=== PATIENT | female | born 1950 | race Caucasian/White ===

== ENCOUNTER 2023-04-10 09:45 | Observation (INO) ==
--- NOTE | 2023-03-19 14:11 | PAT Medication Instructions ---
Medication Instructions Date of Service March 19, 2023 Home Medications Medication Instructions Recorded triamterene 37.5 0.5 tab PO QAM #45 tabs 05/25/21 mg-hydrochlorothiazide 25 mg tablet pravastatin 80 mg tablet 80 mg PO HS #90 tabs 07/25/22 multivit with ncyzcnqk-efhj-KO-lutein 8 mg iron-400 mcg-300 mcg tablet (Centrum Silver Women) 1 tab PO QAM triamterene 37.5 mg-hydrochlorothiazide 25 mg tablet 0.5 tab PO QAM pravastatin 80 mg tablet 80 mg PO HS levothyroxine 75 mcg tablet 75 mcg PO QAM DO NOT take the morning of surgery multivit with neqhsgpl-dpta-EC-lutein 8 mg iron-400 mcg-300 mcg tablet (Centrum Silver Women) 1 tab PO QAM triamterene 37.5 mg-hydrochlorothiazide 25 mg tablet 0.5 tab PO QAM Take morning of surgery With a small sip of water, OTHERWISE NOTHING TO EAT OR DRINK AFTER MIDNIGHT: levothyroxine 75 mcg tablet 75 mcg PO QAM Take evening before surgery pravastatin 80 mg tablet 80 mg PO HS Other Notes If you have any questions please call us at [phone] or [phone] or [phone] or [phone]
--- NOTE | 2023-03-29 09:22 | Anesthesiology Consultation ---
Date of Service March 29, 2023 Assessment & Plan (1) Encounter for pre-operative examination: - COVID screening: Per assessment on 03/29: No known COVID-19 positive contacts or current COVID-19 related symptoms. Travel screen negative. At surgeon discretion if preop Covid testing being done. - S/P Right TKA (09/17/18): SAB at L3/4 x1 attempt + PNB at [facility] - Outpatient joint assessment: Pt currently scheduled for inpatient pathway. If surgeon requests review for outpatient joint pathway, patient is not recommended candidate for outpatient joint program from anesthesia standpoint. - PCP visit (04/03/23): "Preoperative labs, EKG, CXR reviewed with good results. Pt has elevated BP.. Hypertension.. Uncontrolled. Elevated on recheck.. Discussed faithful daily use of BP medication.. She will return on Saturday for BP check, and bring home readings as well as her home cuff to be checked.. I am hopeful her numbers are more reasonable and she can be cleared for surgery at that time.. Follow Up: BP Check Saturday." BP 172/82 > 152/78 on recheck. - Patient acceptable risk for surgery pending BP recheck/final PCP clearance ([facility] [place], BP recheck 04/08). Chart Review Chart Review: Patient seen in Pre Admission Testing Teaching & Discussion Pre-Anesthesia Teaching/Discussion Notes: Instructed NPO after midnight before surgery,except medications with 15 cc of water. Medication instructions provided according to the PAT guidelines. History Surgery Operation Date: 04/10/23 14:15 Proposed Procedures p Left Total Knee Arthroplasty - Sony Fischer MD Height/Weight Height: 4 ft 11 in Weight: 87.7 kg Allergies Allergy/AdvReac Type Severity Reaction Status Date / Time moxifloxacin [From Avelox] Allergy Intermediate Elevated Verified 04/03/23 07:53 temperature keflex AdvReac Intermediate Diarrhea Uncoded 04/03/23 07:53 Medications Home Medications Medication Instructions Recorded Confirmed Last Taken multivit with 1 tab PO QAM 09/09/18 04/03/23 09/16/18 08:00 mpvaolqp-kyzn-YV-lutein 8 mg iron-400 mcg-300 mcg tablet (Centrum Silver Women) pravastatin 80 mg tablet 80 mg PO HS #90 tabs 07/25/22 04/03/23 Unknown levothyroxine 75 mcg tablet 75 mcg PO QAM 03/14/23 04/03/23 Unknown triamterene 37.5 0.5 tab PO QAM #45 tabs 03/26/23 04/03/23 Unknown mg-hydrochlorothiazide 25 mg tablet Past Medical History Medical History Elevated liver enzymes fatty liver? Hair loss Hearing deficit History of kidney stones Hx of cancer of endometrium stage 1A treated with surgery alone Hx of gastroesophageal reflux (GERD) Hx of glaucoma Hyperlipidemia Hypertension Hypothyroid Idiopathic peripheral neuropathy Lumbar canal stenosis Obesity Osteoarthritis Prediabetes Exercise / Class Metabolic Activity III < 4 Walking/Shop/Light housework (No CP, no SOB with 7 steps (lives in a bi- level)) Past Family History Family History Grandmother (Maternal) Family history of diabetes mellitus Sister Family history of diabetes mellitus Aunt Family history of diabetes mellitus Family/Other Family history of diabetes mellitus Other No family history of adverse response to anesthesia Past Surgical History Surgical History H/O eye surgery R/L eye laser surgery for glaucoma History of cardiac cath December 2002 per record- "negative"/patient unaware History of cataract extraction R/L History of cystoscopy with stents History of robot-assisted laparoscopic hysterectomy with BSO and LN dissection 2020 Hx of carpal tunnel repair right and left Hx of colonoscopy Hx of total knee replacement Right TKA (09/17/18): SAB at L3/4 x1 attempt + PNB at [facility] Past Anesthesia History No Hx of Anesthesia Complications and No Family Hx of Anesthesia Complications History of PONV No Hx of PONV and No Hx of Motion Sickness Social History Smoking Status: Former smoker tobacco type: cigarettes Do You Dip or Chew Tobacco: No Smoking End Date: Quit in highschool Hx Alcohol Use: No Hx Substance Use: No substance use type: does not use Review of Systems Patient denies chest pain, shortness of breath, dyspnea on exertion, fever, chills, cough, wheezing, palpitations. Physical Exam Vital Signs VITALS BP 169/78 P 66 TEMP 98.4 SP02 96%RA RESP 16 PHYSICAL Full cervical extension range of motion. Full TMJ range of motion. TMD 3 finger breaths Mallampati Score 2.5 Dentition: intact Lungs: clear throughout to auscultation Cardiac: regular rate and rhythm, no murmurs noted Spine: normal Carotid arteries: negative bruit Extremities: no LE edema Lab Results Anesthesia Preop Results Results Anesthesia Widget: WBC 6.47 K/ul (4.8-10.8) 03/29/23 Hgb 13.9 g/dl (12.0-16.0) 03/29/23 Hct 41.8 % (37.0-47.0) 03/29/23 Plt 232 K/uL (130-400) 03/29/23 Na 141 mmol/L (136-145) 03/29/23 K 4.2 mmol/L (3.5-5.1) 03/29/23 Cl 105 mmol/L (98-107) 03/29/23 CO2 30 mmol/L (21-32) 03/29/23 BUN 13 mg/dl (6-23) 03/29/23 Creat 0.91 mg/dl (0.6-1.2) 03/29/23 Glucose Level 110 mg/dl (70-99(Fasting)) H 03/29/23 PT 11.2 Seconds (9.0-12.0) 03/29/23 PTT 26.5 Seconds (21.0-31.0) 03/29/23 INR 1.0 (0.9-1.1) 03/29/23 Urine Color Yellow 03/29/23 Urine Appearance Clear (Clear) 03/29/23 Urine pH 7.5 (4.5-7.5) 03/29/23 Urine Specific [place] 1.015 (1.000-1.030) 03/29/23 Urine Protein Negative (Negative) 03/29/23 Urine Glucose (UA) Negative (Negative) 03/29/23 Urine Ketones Negative (Negative) 03/29/23 Urine Blood Negative (Negative) 03/29/23 Urine Nitrite Negative (Negative) 03/29/23 Urine Bilirubin Negative (Negative) 03/29/23 Urine Urobilinogen Negative (Negative) 03/29/23 Urine Leukocyte Esterase Negative (Negative) 03/29/23 Blood Type O Positive 03/29/23 Antibody Screen NEGATIVE 03/29/23 Testing Electrocardiogram Date: 03/29/23 NSR at 64bpm. Low voltage QRS. No significant change compared to 09/11/18 per swimmer comparison. Chest X-Ray Date: 03/29/23 FINDINGS: No lines and tubes are seen. Calcified aortic knob is seen. The lungs are clear. No evidence of pleural effusion or pneumothorax. Degenerative changes are seen in the thoracic spine. IMPRESSION: No acute chest disease. Stress Test Date: 03/20/19 Type: exercise Negative exercise stress echo/ECG for ischemia at 87% MPHR. 7 METS. Baseline echo notes normal LV function. LVEF 60%. Mild aortic sclerosis.Mild RVD. Mild concentric LVH. COVID-19 Risk Screen Screening Information COVID-19 Screen Date: 03/29/23 Exposure 21 Days Family/Household +COVID Last 21 Days: No Exposure 10 Days Any COVID Exposure Last 10 Days: No Symptoms Last 10 Days Experienced COVID Sx Last 10 Days: No + COVID 0-90 Days COVID + in Last 0-90 Days: No
--- NOTE | 2023-04-09 10:08 | History & Physical Report ---
Date of Service April 09, 2023 Assessment & Plan (1) Primary osteoarthritis of left knee: Plan: Treatment options discussed with patient. She has failed conservative measures and would like to proceed with surgery. Risks, benefits and alternatives to surgery including but not limited to infection, DVT, pain, stiffness, need for revision surgery, damage to blood vessels, damage to nerves, PE, , were discussed with the patient and they wish to proceed. Plan on left total knee arthroplasty scheduled for 04/10/[address] Fischer at [facility]. Plan on outpatient physical therapy. Plan on aspirin 81mg twice daily for post op DVT prophylaxis. All questions answered. Patient will follow up post op. History of Present Illness Chief Complaint: Left knee pain Primary Care Provider: Yanira Bacon, 72yo female with PMHx significant for HTN, hypothyroidism, high cholesterol, who presents with ongoing left knee pain. Pain is interfering with her daily activity. She has failed conservative measures and would like to proceed with surgery. Patient denies headaches, sweats, fevers, chills, double vision, blur red vision, cough, sore throat, dysphagia, chest pain, sob, wheezing, n/v/d/c, numbness, tingling, fatigue, urinary symptoms, mood disorders. ROS positive for left shoulder pain and stiffness. Allergies Allergy/AdvReac Type Severity Reaction Status Date / Time moxifloxacin [From Avelox] Allergy Intermediate Elevated Verified 04/03/23 07:53 temperature keflex AdvReac Intermediate Diarrhea Uncoded 04/03/23 07:53 Home Medications Medication Instructions Recorded Confirmed Type aokzpucz-fddl-mnaf 8 mg-folic 400 1 tab PO QAM 09/09/18 04/03/23 History mcg-K 50 mcg-lutein 300 mcg tablet (Centrum Silver Women) pravastatin 80 mg tablet 80 mg PO HS #90 tabs 07/25/22 04/03/23 Rx levothyroxine 75 mcg tablet 75 mcg PO QAM 03/14/23 04/03/23 History triamterene 37.5 0.5 tab PO QAM #45 tabs 03/26/23 04/03/23 Rx mg-hydrochlorothiazide 25 mg tablet Past Med/Surg History Medical History Elevated liver enzymes fatty liver? Hair loss Hearing deficit History of kidney stones Hx of cancer of endometrium stage 1A treated with surgery alone Hx of gastroesophageal reflux (GERD) Hx of glaucoma Hyperlipidemia Hypertension Hypothyroid Idiopathic peripheral neuropathy Lumbar canal stenosis Obesity Osteoarthritis Prediabetes Surgical History H/O eye surgery R/L eye laser surgery for glaucoma History of cardiac cath December 2002 per record- "negative"/patient unaware History of cataract extraction R/L History of cystoscopy with stents History of robot-assisted laparoscopic hysterectomy with BSO and LN dissection 2020 Hx of carpal tunnel repair right and left Hx of colonoscopy Hx of total knee replacement Right TKA (09/17/18): SAB at L3/4 x1 attempt + PNB at [facility] Family History Grandmother (Maternal) Family history of diabetes mellitus Sister Family history of diabetes mellitus Aunt Family history of diabetes mellitus Family/Other Family history of diabetes mellitus Other No family history of adverse response to anesthesia Social History Smoking Status: Former smoker Smoking End Date: Quit in [employer]; Second Hand Exposure: No; Do You Dip or Chew Tobacco: No; Hx Alcohol Use: No Hx Substance Use: No Preferred Language: Malian Communication Ability: Effective Medical Record Technician Required: No Beliefs That Will Affect Care: None marital status: Current Living Situation: Spouse Feels Safe at Home: Yes Safety Concerns: Feels Safe At This Time Assistive Devices: Glasses and Hearing Aid - Bilateral Review of Systems All systems reviewed & are unremarkable except as noted in HPI & below Physical Exam Constitutional: well developed and well nourished; no acute distress Eyes: PERRL, conjunctivae normal, anicteric sclerae ENMT: external ear and nose normal, oropharynx normal Neck: trachea midline, no thyromegaly Respiratory: normal respiratory effort, lungs clear to auscultation Cardiovascular: RRR, no murmur, no edema Musculoskeletal: Left knee: ROM 0-115 degrees. Tenderness medial joint line. Crepitation with ROM. Varus alignment. Stable to valgus and varus stress. Skin: no rashes, warm and dry Neurologic: patellar DTR's 2+ bilat, sensation intact Psychiatric: A+Ox3, euthymic affect Results & Data Diagnostic Findings Left knee radiographs: [place]-ph-rbfu medial compartment with periarticular osteophytes. Arthritic changes patellofemoral compartment. There is a right total knee arthroplasty in stable alignment.
[~2023-04-10 09:45] MED LIST: ACETAMINOPHEN 500 MG TAB PO SCH; CeleBREX 200 MG CAP PO SCH; FAMOTIDINE 20 MG TAB PO SCH; GABAPENTIN 300 MG CAP PO SCH; LR 500ML BOLUS, THEN 15ML/HR IV SCH; METOCLOPRAMIDE HCL 10 MG TABLET PO SCH; ROPIVACAINE 0.5% 5 MG/ML 30 ML VIAL ONE; ROPIVACAINE 0.5% HCL/PF 150 MG, BUPIVACAINE 0.75% MPF 20 ML, EPINEPHrine 30MG/30ML (OR ... INSTIL SCH; TRANEXAMIC ACID 1,000 MG **IV Intra-op IV SCH; TRANEXAMIC ACID 1,000 MG **IV Pre-op IV SCH; ceFAZolin 2000MG 2,000 MG/15 ML SYR IV SCH; dexAMETHasone 4 MG TAB PO SCH
--- NOTE | 2023-04-10 10:05 | History & Physical Bridge Note ---
Date of Service April 10, 2023 History & Physical Bridge Note I have examined the patient, reviewed the History & Physical and in the interval since the performance of the History & Physical I have noted the following changes of clinical significance: no changes noted
[2023-04-10] MEDS ORDERED: PROPOFOL IV EMULSION 10 MG/ML 20 ML VIAL IV ONE ×4 (10:37→13:47)
[2023-04-10] MEDS ORDERED: fentaNYL citrate PF 100 MCG/2 ML VIAL ONE (10:37)
[2023-04-10] MEDS ORDERED: MIDAZOLAM HCL 1 MG/ML 2ML VIAL ONE (12:01)
[2023-04-10] MEDS ORDERED: ONDANSETRON INJ 2 MG/ML 2 ML VIAL IV PRN ×2 (12:05→17:18)
[2023-04-10] MEDS ORDERED: ATROPINE SULFATE 0.1 MG/ML 10ML SYR IV PRN (12:05)
[2023-04-10] MEDS ORDERED: HYDROmorphone INJ 1 MG/ML SYRINGE IV PRN (12:05)
[2023-04-10] MEDS ORDERED: ePHEDrine sulfate 50 MG/ML AMP IV PRN (12:05)
[2023-04-10] MEDS ORDERED: ORTHO JOINT ANESTHETIC ONE (12:13)
[2023-04-10] MEDS ORDERED: hydrALAZINE HCL 20 MG/ML VIAL ONE (12:55)
--- NOTE | 2023-04-10 14:23 | Operative Report ---
Post Operative Report Pre & Post Diagnosis Operation Date: 04/10/23 12:05 Pre-Op Diagnosis: Left Knee Osteoarthritis, obesity BMI 38.6 Post-Op Diagnosis: Left Knee Osteoarthritis, obesity BMI 38.6 I identified the patient and participated in the time-out.: Yes Procedure Operation Date: 04/10/23 12:05 Actual Procedures p Left Total Knee Arthroplasty(Left), luzmaria and Acticoat superficial wound VAC application- Sony Fischer MD Surgeon Sony Fischer MD [employer] Driver Davis FOOTE Estimated Blood Loss 5 Findings Consistent with Post-Op Diagnosis Specimens Bone cuts Drains 2 Hemovac Anesthesia Type MAC Spinal Regional Complications none Disposition Disposition: Recovery Room Indications 72-year-old female with progressive osteoarthritis left knee failed conservative management she has patellofemoral and medial compartment osteoarthritis [id number] in the medial compartment with a varus knee. She has moderate obesity BMI 38.6. Description of Procedure Patient taken to the operating room the size under spinal MAC regional block anesthesia. Patient was placed supine on the operating table. A pneumatic tourniquet was placed about the left upper thigh. The left lower extremity was prepped and draped in sterile fashion. Knee exam demonstrated good range of motion no pseudolaxity stable knee varus leg moderate obesity the upper thigh. The leg was elevated exsanguinated with an Esmarch bandage and pneumatic tourniquet was raised to 325 millimeters of mercury. Skin incised sharply in longitudinal fashion. Subcutaneous flaps elevated. Incision was made through the medial retinaculum extending up in the mid third of the quadriceps tendon and down to the medial tibial tubercle. Intra-articular findings demonstrated unicompartment and patellofemoral osteoarthritis with grade 4 patella osteoarthritis inferior pole and grade 3 central region with grade 4 medial compartment [id number] anteromedial arthritic changes with a varus knee.. The [employer] total knee arthroplasty system was used. To expose the knee the infrapatellar fat pad was resected. The meniscal remnants and cruciate lig aments were resected. The anterior fat pad over the femur in the area of the anterior flange of the femoral component was resected. Lateral synovial bands release. The femur was exposed. An intramedullary drill hole was made into the canal. A guide gee was placed. Distal femoral cutting guide was adjusted to resect a 5 degree valgus cut with 8 millimeters distal femur resected. The knee was extended and a subperiosteal peel lateral release was performed around the patella. Patella width was measured and width was reproduced using a freehand cut technique and a 31 symmetrical patella component. The 3 drill holes were made and the excess lateral facet was beveled off to prevent any impingement. Attention was taken back to the femur which was exposed with retractors and the femoral sizing guide was pinned in position. The drill holes were placed in 3 of external rotation to match epicondylar axis. Femur sized for a 3 component. The 4-in-1 cutting block was placed and then the anterior posterior and chamfer cuts are made. The tibia was then subluxed. The external tibial cutting guide was just to make a perpendicular cut to the long axis of the tibia below the most deficient bone loss side. A lamina blender / cook was used and the flexion extension gaps were balanced. This required minor medial release only. All posterior osteophytes removed. All meniscal remnants were resected. The tibia exposed and the trial tibial component size 2 was externally rotated in line with the tibial tubercle and pinned in position. The punch for stem was used. The notch cutting device was centered appropriately and the femoral notch cut was made. The femoral trial was inserted. Trial tibial inserts were placed and size 11 gave balanced ligaments through flexion and extension. Patella tracking was assessed. The patella tracked centrally. The trial components were then removed and the orthomix anesthetic cocktail was injected per protocol. The knee was then copiously irrigated with pulsatile lavage saline solution. Final components were then cemented with Refobacin cement. Final components were [place] triathlon posterior stabilized size left femoral component, size 2 primary tibial baseplate, a 2 x 11 mm X.3 polyethylene tibial bearing insert. And the 31 x 9 mm, X3 symmetrical polyethylene patella component. After the cement cured the Betadine soak was used for 3 minutes. Further pulsatile lavage irrigation was then performed and 2 Hemovac drains were brought out laterally. The quadriceps tendon and medial retinaculum were closed with figure of 8 #1 V icryl sutures. The knee was taken through full range of motion and the repair was secure. Knee range of motion was 0 through 130 degrees. The subcutaneous tissues were closed with 2-0 Vicryl sutures. Skin was closed with anna. Acticoat superficial wound VAC was applied. The patient tolerated the procedure well. Davis FOOTE was my physician assistant professor of english who participated as assistant chief train dispatcher and was involved in all aspects of the procedure including patient positioning prepping and draping,leg positioning ,soft tissue retraction and instrument management and participated in the closing application of superficial wound VAC and will participate in postoperative care of the patient. The patient tolerated the procedure well. I attest to the content of the Intraoperative Record and any orders documented therein. Any exceptions are noted below.
--- NOTE | 2023-04-10 15:40 | XRay Report ---
LEFT KNEE 2 VIEWS History: Left total knee arthroplasty. Degenerative arthritis. Postop. FINDINGS: The patient is status post a left total knee arthroplasty. The hardware is intact. No fract ure or dislocation. Skin anna and surgical drains are in place. IMPRESSION: Left total knee arthroplasty. No evidence for hardware complication. ACT 112: Negative or not required by law. Electronically signed by: Smith Berry M.D. 04/10/2023 3:38 PM
[2023-04-10] MEDS ORDERED: METOCLOPRAMIDE HCL INJ 5 MG/ML 2 ML VIAL IV PRN (17:18)
[2023-04-10] MEDS ORDERED: NALOXONE HCL 0.4 MG/1 ML VIAL/CARP IV PRN (17:18)
[2023-04-10] MEDS ORDERED: HYDROmorphone INJ 0.5 MG/0.5 ML SYR IV PRN (17:18)
[2023-04-10] MEDS ORDERED: MAGNESIUM HYDROXIDE SUSP 30 ML UDC PO PRN (17:18)
[2023-04-10] MEDS ORDERED: oxyCODONE HCL IR 5 MG TAB (IMMEDIATE RELEASE) PO PRN (17:18)
[2023-04-10] MEDS ORDERED: bisacodyL 10 MG SUPP PR PRN (17:18)
[2023-04-10] MEDS: SODIUM CHLORIDE 0.9% 1000ML 1,000 ML IV SCH (17:26)
--- NOTE | 2023-04-10 17:49 | Anesthesiology Progress Note ---
Date of Service April 10, 2023 Anesthesia Post Procedure Vital Signs Vital Signs: Temp Pulse Pulse Resp BP Pulse Ox O2 Del Method 04/10/23 17:00 36.4 C L 75 18 145/70 H 96 Room Air 04/10/23 17:28 62 16 132/69 94 Room Air 04/10/23 16:35 66 17 135/59 L 95 Nasal Cannula 04/10/23 16:20 66 18 137/64 95 Nasal Cannula 04/10/23 16:05 66 19 152/69 H 96 Nasal Cannula 04/10/23 15:50 36.2 C L 64 20 152/69 H 96 Nasal Cannula 04/10/23 15:40 66 21 151/69 H 96 Nasal Cannula 04/10/23 15:30 66 18 149/70 H 96 Nasal Cannula 04/10/23 15:20 69 19 146/70 H 97 Nasal Cannula 04/10/23 15:10 36.6 C 75 19 141/66 H 96 Nasal Cannula 04/10/23 10:11 36.9 C 67 18 188/90 H 96 Room Air O2 Flow Rate 04/10/23 17:00 04/10/23 17:28 04/10/23 16:35 2 04/10/23 16:20 2 04/10/23 16:05 2 04/10/23 15:50 2 04/10/23 15:40 2 04/10/23 15:30 2 04/10/23 15:20 2 04/10/23 15:10 2 04/10/23 10:11 Transfer of Care Handoff Completed per policy Notes Mental Status: alert / awake / arousable Patient Amnestic to Procedure: Yes Nausea / Vomiting: adequately controlled Pain: adequately controlled Airway Patency, RR, SpO2: stable & adequate BP & HR: stable & adequate Hydration State: stable & adequate Neuraxial Anesthesia: was administered and sensory block is resolving Anesthetic Complications: no major complications apparent
[2023-04-10] MEDS ORDERED: SENNA 8.6 MG TAB PO SCH (21:00)
[2023-04-10] MEDS ORDERED: PRAVASTATIN SOD 40 MG TAB PO SCH (21:00)
[2023-04-10] MEDS: ASPIRIN 81 MG ECTAB PO SCH (21:46)
[2023-04-10] MEDS: DOCUSATE SODIUM 100 MG CAP PO SCH (21:46)
[2023-04-10] MEDS: ACETAMINOPHEN 500 MG TAB PO SCH (21:46)
[2023-04-10] MEDS: ceFAZolin 2000MG 2,000 MG/15 ML SYR IV SCH (21:46)
[2023-04-10] MEDS: CeleBREX 200 MG CAP PO SCH (21:46)
[2023-04-11] MEDS: SODIUM CHLORIDE 0.9% 1000ML 1,000 ML IV SCH (03:27)
[2023-04-11] MEDS: ACETAMINOPHEN 500 MG TAB PO SCH (06:03)
[2023-04-11] MEDS: ceFAZolin 2000MG 2,000 MG/15 ML SYR IV SCH (06:04)
[2023-04-11 06:15] LABS: Hematocrit (blood only) 36.1 % (37.0-47.0); Hemoglobin 12.2 g/dl (12.0-16.0); Mean Corpuscular Hemoglobin 30.4 pg (25.0-34.0); Mean Corpuscular Hgb Conc 33.8 g/dL (32.0-36.0); Mean Platelet Volume 10.8 fL (9.4-12.4); Platelet Count 196 K/uL (130-400); RDW Coefficient of Variation 11.9 % (11.5-14.5); RDW Standard Deviation 39.2 fL (36.4-46.3); Red Blood Count 4.01 M/uL (4.20-5.40); White Blood Count 12.69 K/ul (4.8-10.8)
[2023-04-11] MEDS ORDERED: LEVOTHYROXINE SODIUM 75 MCG TABLET PO SCH (06:30)
[2023-04-11 06:53] LABS: BUN Creatinine Ratio 17.9 (10-20); Calcium 8.4 mg/dl (8.6-10.3); Creatinine Clr Calc Pharmacy 49.7 ml/min; Est GFR (African American) 68.4 ml/min; Potassium 4.1 mmol/L (3.5-5.1)
--- NOTE | 2023-04-11 06:57 | Orthopedic Progress Note ---
Date of Service April 11, 2023 Assessment & Plan (1) Primary osteoarthritis of left knee: Plan: Postop day 1 status post left total knee arthroplasty. PT/OT protocols. Weightbearing as tolerated. DVT prophylaxis-aspirin p.o. twice daily, ANTOLIN English. Pain management as written. DC planning-patient is planning for discharge to home with outpatient PT. Admission and Anticipated Discharge Date Admission Date: April 10, 2023 Subjective Postop day 1 Patient sitting up in bed awake and alert. She has no complaints this morning. Pain is controlled. She denies shortness of breath, chest pain, lightheadedness. She is hoping to go home today. Physical Exam Physical Exam: Dressings are clean, dry, and intact. Calves are soft nontender. Neurovascular intact. Toes are mobile. She has good dorsiflexion and plantarflexion of the left knee. Minimal drainage from the Hemovac Results & Data Vital Signs (Past 12 Hours) Vital Signs Temp Pulse Resp BP Pulse Ox O2 Del Method 04/11/23 02:45 36.4 C L 63 16 149/74 H 95 Room Air 04/10/23 23:31 36.3 C L 65 16 144/73 H 94 Room Air 04/10/23 20:17 36.3 C L 72 16 139/72 96 Room Air 04/10/23 19:02 36.3 C L 78 16 131/66 95 Room Air Laboratory Results Laboratory Results WBC 12.69 K/ul (4.8-10.8) H 04/11/23 05:35 RBC 4.01 M/uL (4.20-5.40) L 04/11/23 05:35 Hgb 12.2 g/dl (12.0-16.0) 04/11/23 05:35 Hct 36.1 % (37.0-47.0) L 04/11/23 05:35 MCV 90.0 fL (80.0-100.0) 04/11/23 05:35 MCH 30.4 pg (25.0-34.0) 04/11/23 05:35 MCHC 33.8 g/dL (32.0-36.0) 04/11/23 05:35 RDW Std Deviation 39.2 fL (36.4-46.3) 04/11/23 05:35 RDW Coeff of Massiel 11.9 % (11.5-14.5) 04/11/23 05:35 Plt Count 196 K/uL (130-400) 04/11/23 05:35 MPV 10.8 fL (9.4-12.4) 04/11/23 05:35 Sodium 139 mmol/L (136-145) 04/11/23 05:35 Potassium 4.1 mmol/L (3.5-5.1) 04/11/23 05:35 Chloride 109 mmol/L (98-107) H 04/11/23 05:35 BUN 17 mg/dl (6-23) 04/11/23 05:35 Creatinine 0.95 mg/dl (0.6-1.2) 04/11/23 05:35 Est Cr Clr Drug Dosing 49.7 ml/min 04/11/23 05:35 Est GFR ( Amer) 68.4 ml/min 04/11/23 05:35 Est GFR (Non-Af Amer) 59.0 ml/min 04/11/23 05:35 BUN/Creatinine Ratio 17.9 (10-20) 04/11/23 05:35 Glucose 171 mg/dl (70-99(Fasting)) H 04/11/23 05:35 POC Glucose 116 mg/dl (70-99) H 04/10/23 10:05 Calcium 8.4 mg/dl (8.6-10.3) L 04/11/23 05:35 SARS-CoV-2, RNA, NAAT NEGATIVE (NEGATIVE) 04/10/23 Unknown Impressions Knee X-Ray 04/10/23 15:12 LEFT KNEE 2 VIEWS History: Left total knee arthroplasty. Degenerative arthritis. Postop. FINDINGS: The patient is status post a left total knee arthroplasty. The hardware is intact. No fracture or dislocation. Skin anna and surgical drains are in place. IMPRESSION: Left total knee arthroplasty. No evidence for hardware complication. ACT 112: Negative or not required by law. Electronically signed by: Smith Berry M.D. 04/10/2023 3:38 PM
[2023-04-11] MEDS: DOCUSATE SODIUM 100 MG CAP PO SCH (08:36)
[2023-04-11] MEDS: ASPIRIN 81 MG ECTAB PO SCH (08:37)
[2023-04-11] MEDS: CeleBREX 200 MG CAP PO SCH (08:37)
[2023-04-11] MEDS ORDERED: CEROVITE ADV FORMULA TAB PO SCH (09:00)
[2023-04-11] MEDS ORDERED: TRIAMTERENE/HCTZ 37.5/25MG TAB PO SCH (09:00)
--- NOTE | 2023-04-11 10:32 | Hospitalist Consultation ---
Date of Consultation April 11, 2023 Assessment & Plan (1) Primary osteoarthritis of left knee: Left knee osteoarthritis s/p left total knee arthroplasty For left knee OA, uncomplicated with 5 cc of blood loss DVT prophylaxis per primary team, on aspirin 81 mg p.o. twice daily GERD Continue PPI daily especially while on NSAIDs/aspirin No epigastric pain/tenderness at time of exam Hypertension Continue triamhydrochlorothiazide, normotensive at time of discharge Hyperlipidemia Continue pravastatin 80 mg daily Hypothyroidism Continue Synthroid 75 mcg daily Patient is clinically well, with no acute concerns. Agree with discharge, would continue ulcer prophylaxis for 30 days given history of GERD. Prescription for Protonix sent to pharmacy (2) Endometrial cancer: (3) Elevated liver enzymes: (4) Morbid obesity: (5) GERD (gastroesophageal reflux disease): History of Present Illness Attending Physician: Sony Fischer MD History of Present Illness Prisca is a 72-year-old female with a past medical history of ureteral stone, pre-DM, morbid obesity, idiopathic peripheral neuropathy in the setting of diabetes, hypothyroidism, hypertension, GERD Preoperative clearance reviewed. EKG, chest x-ray normal Is with hypertension at baseline, intermittently poorly controlled but improved on nurse visit preoperatively to 142/78. Prisca is seen in the wheelchair in the hallway prior to discharge. She reports that she feels well, and has no pain in her knee. She notes that she has a history of reflux/GERD although does not currently have any epigastric pain. She reports that she has no chest pain, chest pressure, lightheadedness, dizziness. She is excited to be discharged from the hospital, and has no acute questions or concerns. Allergies Allergy/AdvReac Type Severity Reaction Status Date / Time moxifloxacin [From Avelox] Allergy Intermediate Elevated Verified 04/10/23 10:07 temperature keflex AdvReac Intermediate Diarrhea Uncoded 04/10/23 10:07 Home Medications Medication Instructions Recorded Confirmed Type [id number] 8 mg-folic 400 1 tab PO QAM 09/09/18 04/10/23 History mcg-K 50 mcg-lutein 300 mcg tablet (Centrum Silver Women) pravastatin 80 mg tablet 80 mg PO HS #90 tabs 07/25/22 04/10/23 Rx levothyroxine 75 mcg tablet 75 mcg PO QAM 03/14/23 04/10/23 History triamterene 37.5 0.5 tab PO QAM #45 tabs 03/26/23 04/10/23 Rx mg-hydrochlorothiazide 25 mg tablet acetaminophen 500 mg tablet 1,000 mg PO Q8 14 days #84 tabs 04/11/23 Rx (Tylenol Extra Strength) aspirin 81 mg tablet,delayed 81 mg PO BID 30 days #60 tabs 04/11/23 Rx release celecoxib 200 mg capsule (Celebrex) 200 mg PO BID 14 days #28 caps 04/11/23 Rx oxycodone 5 mg tablet 5 mg PO Q4H PRN pain #30 tabs 04/11/23 Rx pantoprazole 40 mg tablet,delayed 40 mg PO DAILY 4 weeks #28 tabs 04/11/23 Rx release polyethylene glycol 3350 17 gram 17 g PO DAILY PRN constipation #5 04/11/23 Rx oral powder packet (Miralax) ea Patient History Medical History Elevated liver enzymes fatty liver? Hair loss Hearing deficit History of kidney stones Hx of cancer of endometrium stage 1A treated with surgery alone Hx of gastroesophageal reflux (GERD) Hx of glaucoma Hyperlipidemia Hypertension Hypothyroid Idiopathic peripheral neuropathy Lumbar canal stenosis Obesity Osteoarthritis Prediabetes Surgical History H/O eye surgery R/L eye laser surgery for glaucoma History of cardiac cath December 2002 per record- "negative"/patient unaware History of cataract extraction R/L History of cystoscopy with stents History of robot-assisted laparoscopic hysterectomy with BSO and LN dissection 2020 Hx of carpal tunnel repair right and left Hx of colonoscopy Hx of total knee replacement Right TKA (09/17/18): SAB at L3/4 x1 attempt + PNB at [facility] Family History Grandmother (Maternal) Family history of diabetes mellitus Sister Family history of diabetes mellitus Aunt Family history of diabetes mellitus Family/Other Family history of diabetes mellitus Other No family history of adverse response to anesthesia Social History Smoking Status: Former smoker Smoking End Date: Quit in [place]; Second Hand Exposure: No; Do You Dip or Chew Tobacco: No; Hx Alcohol Use: No Hx Substance Use: No Preferred Language: Botswan[place] Communication Ability: Effective Gate Watch Required: No Beliefs That Will Affect Care: None marital status: Current Living Situation: Spouse Feels Safe at Home: Yes Safety Concerns: Feels Safe At This Time Assistive Devices: Walker Review of Systems Review of Systems: All systems reviewed & are unremarkable except as noted in Subjective Physical Exam Physical Exam: General: A&Ox3. NAD. Cooperative. HEENT: Atraumatic, normocephalic. Pulm:Symmetrical chest rise. No increased work of breathing. No respiratory distress. Cardiac: RRR, -mrg. Radial pulses intact and symmetrical. Abdominal: Nontender, nondistended, soft. BS present. Extremities: Left knee dressing intact, sensation in feet intact bilaterally. Patient is in wheelchair at time of visit Results & Data Results & Data Vital Signs (Past 12 Hours) Vital Signs Temp Pulse Resp BP Pulse Ox O2 Del Method 04/11/23 08:11 36.4 C L 59 L 18 134/70 94 04/11/23 07:20 36.4 C L 59 L 18 134/70 94 Room Air 04/11/23 02:45 36.4 C L 63 16 149/74 H 95 Room Air 04/10/23 23:31 36.3 C L 65 16 144/73 H 94 Room Air PG Care Time/CCT Total # of Minutes Spent Total Time Spent with Patient: Total time spent is greater than 50% in coordination of care (as documented) at patient's floor/unit and/or counseling patient: Coding Level of Care Code 67764 IN/OBS CONSULT LVL 3,45M Diagnoses Primary osteoarthritis of left knee M17.12 Endometrial cancer C54.1 Elevated liver enzymes R74.8 Morbid obesity E66.01 GERD (gastroesophageal reflux disease) K21.9
--- NOTE | 2023-04-13 20:21 | Discharge Summary ---
Date of Service April 13, 2023 Admission HPI Per Admitting Provider 72yo female with PMHx significant for HTN, hypothyroidism, high cholesterol, who presents with ongoing left knee pain. Pain is interfering with her daily activity. She has failed conservative measures and would like to proceed with surgery. Patient denies headaches, sweats, fevers, chills, double vision, blurred vision, cough, sore throat, dysphagia, chest pain, sob, wheezing, n/v/d/c, numbness, tingling, fatigue, urinary symptoms, mood disorders. ROS positive for left shoulder pain and stiffness. Admission Exam Per Admitting Provider Constitutional: well developed and well nourished; no acute distress Eyes: PERRL, conjunctivae normal, anicteric sclerae ENMT: external ear and nose normal, oropharynx normal Neck: trachea midline, no thyromegaly Respiratory: normal respiratory effort, lungs clear to auscultation Cardiovascular: RRR, no murmur, no edema Musculoskeletal: Left knee: ROM 0-115 degrees. Tenderness medial joint line. Crepitation with ROM. Varus alignment. Stable to valgus and varus stress. Skin: no rashes, warm and dry Neurologic:M patellar DTR's 2+ bilat, sensation intact Psychiatric: A+Ox3, euthymic affect Principal Diagnosis Left knee osteoarthritis Discharge Exam Dressings are clean, dry, and intact. Calves are soft nontender. Neurovascular intact. Toes are mobile. She has good dorsiflexion and plantarflexion of the left knee. Minimal drainage from the Hemovac Constitutional well developed and well nourished; no acute distress Discharge Data Allergies Allergy/AdvReac Type Severity Reaction Status Date / Time moxifloxacin [From Avelox] Allergy Intermediate Elevated Verified 04/10/23 10:07 temperature keflex AdvReac Intermediate Diarrhea Uncoded 04/10/23 10:07 Consultations 04/09/23 09:02 Consult Hospitalist Routine Procedures Performed Operation Date: 04/10/23 12:05 Actual Procedures p Left Total Knee Arthroplasty(Left) - Sony Fischer MD Ordered Studies 04/10/23 05:00 US - OR guided needle placemen Routine Hospital Course (1) Primary osteoarthritis of left knee: Postop day 1 status post left total knee arthroplasty. PT/OT protocols. Weightbearing as tolerated. DVT prophylaxis-aspirin p.o. twice daily, SCDs, ANTOLIN dimas. Pain management as written. DC planning-patient is planning for discharge to home with outpatient PT. Lab Results 04/10/23 04/10/23 04/11/23 Range/Units 10:05 Unknown 05:35 WBC 12.69 H (4.8-10.8) K/ul RBC 4.01 L (4.20-5.40) M/uL Hgb 12.2 (12.0-16.0) g/dl Hct 36.1 L (37.0-47.0) % MCV 90.0 (80.0-100.0) fL MCH 30.4 (25.0-34.0) pg MCHC 33.8 (32.0-36.0) g/dL RDW Std Deviation 39.2 (36.4-46.3) fL RDW Coeff of Massiel 11.9 (11.5-14.5) % Plt Count 196 (130-400) K/uL MPV 10.8 (9.4-12.4) fL Sodium (136-145) mmol/L Potassium (3.5-5.1) mmol/L Chloride (98-107) mmol/L Carbon Dioxide (21-32) mmol/L Anion Gap (3-11) BUN (6-23) mg/dl Creatinine (0.6-1.2) mg/dl Est Cr Clr Drug Dosing ml/min Est GFR ( Amer) ml/min Est GFR (Non-Af Amer) ml/min BUN/Creatinine Ratio (10-20) Glucose (70-99(Fasting)) mg/dl POC Glucose 116 H (70-99) mg/dl Calcium (8.6-10.3) mg/dl SARS-CoV-2, RNA, NAAT NEGATIVE (NEGATIVE) 04/11/23 Range/Units 05:35 WBC (4.8-10.8) K/ul RBC (4.20-5.40) M/uL Hgb (12.0-16.0) g/dl Hct (37.0-47.0) % MCV (80.0-100.0) fL MCH (25.0-34.0) pg MCHC (32.0-36.0) g/dL RDW Std Deviation (36.4-46.3) fL RDW Coeff of Massiel (11.5-14.5) % Plt Count (130-400) K/uL MPV (9.4-12.4) fL Sodium 139 (136-145) mmol/L Potassium 4.1 (3.5-5.1) mmol/L Chloride 109 H (98-107) mmol/L Carbon Dioxide 22 (21-32) mmol/L Anion Gap 8 (3-11) BUN 17 (6-23) mg/dl Creatinine 0.95 (0.6-1.2) mg/dl Est Cr Clr Drug Dosing 49.7 ml/min Est GFR ( Amer) 68.4 ml/min Est GFR (Non-Af Amer) 59.0 ml/min BUN/Creatinine Ratio 17.9 (10-20) Glucose 171 H (70-99(Fasting)) mg/dl POC Glucose (70-99) mg/dl Calcium 8.4 L (8.6-10.3) mg/dl SARS-CoV-2, RNA, NAAT (NEGATIVE) Total Time Total Time Spent Total Time Spent (In Minutes): 20 Discharge Plan Discharge Items Patient Disposition: Home - Self-Care Reason For Visit: POST OP Discharge Diagnosis: Left knee osteoarthritis Activity: Per Instructions section Weightbearing: Left weightbearing Weightbearing Comment: As tolerated with walker Non-emergency contact: Surgeon Call non-emergency contact if: you have any medication questions, your pain is not controlled, you have a fever, your temperature is above 101, your wound has increased redness and your wound has increased drainage Follow-up/Referrals: Yanira Bacon-DO Negrita [Primary Care Provider] - Sony Fischer MD [Surgeon] - (Follow-up with Dr. Fischer or his physician purchasing assistant in 2 weeks from the day of surgery for your first postoperative visit.) Diet: Regular Addtl Attending Provider Instructions: ACTIVITY RECOMMENDATIONS: SELF CARE INSTRUCTIONS AFTER TOTAL KNEE REPLACEMENT A. You may need to continue a physical therapy program after discharge from the hospital. There are several options available to you. Your doctor will assist you in selecting the best one for you. 1. An out-patient facility 2 to 3 times a week for therapy or home therapy. 2. Continue working on all exercises taught to you in the hospital. Your goals should be to increase bending of your knee to 90 degrees and beyond and to fully straighten your knee. B. You may progress at your own pace from walking with a walker or crutches to a cane; then to no assistive devices. C. Make walking a part of your daily routine. Be up as much as comfortable with rest periods throughout the day. Rest with leg elevation is very important. Use the ice wrap frequently for the first 3-4 weeks. D. There are no restrictions on activities. You may ride in a car, shop, participate in administrative assistant office manager and all social activities. E. Wear the long elastic stockings (ANTOLIN hose) 20 hours a day for 2 weeks after surgery. They can be removed several times a day for laundering and for a bath. F. You may shower, no tub baths until cleared by your doctor. SPECIAL CARE INSTRUCTIONS: VERY IMPORTANT TO READ AND REVIEW A. There are a few signs you need to watch for after you are home. Call [facility] if you notice any of the followin. Increased severe knee pain. Some pain is expected especially when you exercise. 2. Increased swelling in your leg or knee; pain or swelling of the calf muscle in either lower leg. 3. Any fluid drainage from the incision. 4. Shortness of breath or chest pain. B. Please call [facility] at if you have any concerns or questions about your operation or recovery. The doctor or his nurse will return your call promptly. C. You must take antibiotics before dental work, bladder, bowel or other surgery. Your doctor will provide you with a permanent care to carry describing this precaution. IMPORTANT: * REMEMBER TO TAKE ASPIRIN, 81 MG, TWICE DAILY FOR 4 WEEKS UNLESS OTHERWISE D IRECTED. THIS IS YOUR BLOOD THINNER. * HIGH RISK PATIENTS MAY BE PRESCRIBED A STRONGER BLOOD THINNER. THIS WILL BE PROVIDED AT DISCHARGE. * CALL IF INCREASED PAIN, REDNESS, DRAINAGE OR FEVER GREATER THAT 101. * WEAR ANTOLIN HOSE 20 HOURS PER DAY FOR 2 WEEKS. There is a large suction dressing covering your incision. This will help pull any excess drainage from the wound and allow your incision to heal properly. You may shower with this if you can keep the unit outside of the shower. If any bleeding or leakage is noted please call your doctor's office. This will rem ain on your incision for 7 days and then should be removed. This can be done yourself or by the home nursing staff if applicable. The entire unit is disposable once removed. Once removed, keep incision clean and dry. If redness or drainage is noted, please call your surgeon. . IF INCISION IS LEAKING THROUGH DRESSING, CALL THE OFFICE . FOLLOW UP VISIT: If appointment is not already scheduled: Please call [facility] to make a follow-up appointment for 2 weeks after your surgery at . Addtl Sex Offender Treatment Professional Provider Instructions: You have been prescribed aspirin twice daily and Celebrex by your surgeon. These can contribute to stomach ulcers, and while you have not had GERD or stomach bleeding before ulcers can develop while on these medications. To help protect your stomach you have been prescribed Protonix 40 mg daily for 1 month. If you develop stomach pain, black/bloody bowel movements, or lightheaded/dizziness please contact your primary care doctor for evaluation, or present to the emergency department if you are very concerned. Pending Studies at Discharge: No Stand-Alone Forms: My [facility], Smoking Cessation Medications and DC Order Prescriptions: New acetaminophen [Tylenol Extra Strength] 500 mg Tablet 1,000 mg PO Q8 14 Days Qty: 84 0RF aspirin 81 mg Tablet,Delayed Release (Dr/Ec) 81 mg PO BID 30 Days Qty: 60 0RF celecoxib [Celebrex] 200 mg Capsule 200 mg PO BID 14 Days Qty: 28 0RF polyethylene glycol 3350 [Miralax] 17 gram powder in packet 17 g PO DAILY PRN (Reason: constipation) Qty: 5 0RF oxycodone 5 mg tablet 5 mg PO Q4H MDD 6 PRN (Reason: pain) Qty: 30 0RF pantoprazole 40 mg tablet,delayed release (DR/EC) 40 mg PO DAILY 28 Days Qty: 28 0RF Continued pravastatin 80 mg tablet 80 mg PO HS Qty: 90 3RF triamterene-hydrochlorothiazid 37.5-25 mg tablet 0.5 tab PO QAM Qty: 45 3RF Centrum Silver Women 8 mg iron-400 mcg-300 mcg Tablet 1 tab PO QAM levothyroxine 75 mcg tablet 75 mcg PO QAM Discharge Orders: Discharge Order (Routine); Ordered 04/11/23 Ordered By: Vincent Abdullahi Admission Data Admit Date/Time: 04/10/23 15:12 Attending Provider: Sony Fischer Admit Provider: Sony Fischer Primary Care Provider: Yanira Bacon Other Providers: Philip Dumont Paul Other Interventions: Discharge Summary Assessment (RN) Last Done: 04/11/23 08:11
== END 2023-04-11 10:46 | disposition home or self-care (01) ==
LOC: ASU 09:45 → 3E 09:45